=== PATIENT | male | born 1950 | race Caucasian/White ===

== ENCOUNTER 2016-12-29 06:27 | Day surgery (SDC) | payer BC ==
[2016-12-29] MEDS ORDERED: Proparacaine 0.5% Ophth Soln 15 ML Bottle EYELF ONE (06:30)
[2016-12-29] MEDS ORDERED: Cataract Ophth Solution EYELF ONE (06:30)
[2016-12-29] MEDS ORDERED: Phenylephrine 10% Ophth Soln 5 ML Bot EYELF ONE (06:30)
[2016-12-29] MEDS ORDERED: Povidone-Iodine 5% Sterile Ophth Soln 30 ML Bottle EYELF ONE ×3 (06:30→08:59)
[2016-12-29] MEDS ORDERED: Ondansetron 4 MG/2 ML SDV IVPUSH PRN (06:30)
[2016-12-29] MEDS ORDERED: Moxifloxacin 0.5% Ophth Soln 3 ML Bottle EYELF ONE (06:30)
[2016-12-29] MEDS ORDERED: Phenylephrine 10% Ophth Soln 5 ML Bot EYELF PRN (06:30)
[2016-12-29] MEDS ORDERED: Timolol Maleate 0.5% Ophth Soln 5 ML Bottle EYELF ONE (06:30)
[2016-12-29] MEDS ORDERED: Acetaminophen/Codeine 300-30 MG Tab PO PRN (06:30)
[2016-12-29] MEDS ORDERED: Sodium Chloride 0.9% 10 ML Syringe FLUSH PRN (06:30)
[2016-12-29] MEDS ORDERED: Acetaminophen 325 MG Tab PO PRN (06:30)
[2016-12-29] MEDS ORDERED: Dexamethasone 4 MG/ML SDV ONE (07:30)
[2016-12-29] MEDS ORDERED: Midazolam 1 MG/ML 2 ML SDV ONE (07:30)
[2016-12-29] MEDS ORDERED: Lidocaine 1% 30 ML SDV ONE (07:58)
[2016-12-29] MEDS ORDERED: Diclofenac Sodium 0.1% Ophth Soln 5 ML Bottle EYELF ONE (07:58)
[2016-12-29] MEDS ORDERED: Vancomycin 500 MG SDV EYELF ONE (07:59)
[2016-12-29] MEDS ORDERED: Dexamethasone/Neomycin/Polymyxin B Ophth Oint 3.5 GM Tube EYELF ONE (07:59)
[2016-12-29] MEDS ORDERED: Apraclonidine 0.5% Ophth Soln 5 ML Bot EYELF ONE (07:59)
[2016-12-29] MEDS ORDERED: Chondroitin Sulfate/Hyaluronate Sodium Ophth Inj 0.75 ML Syringe EYELF ONE (08:00)
[2016-12-29] MEDS ORDERED: Balanced Salt Solution Ophth Irrig 500 ML Bottle IOCULAR ONE (08:00)
[2016-12-29] MEDS ORDERED: Tetracaine HCl/PF 0.5% 4 ML Bottle EYELF ONE (08:00)
--- NOTE | 2016-12-29 09:32 | OR ---
DATE: 12/29/2016 PREOPERATIVE DIAGNOSIS: Cataract, left eye. POSTOPERATIVE DIAGNOSIS: Cataract, left eye. PROCEDURE: Extracapsular cataract extraction with intraocular lens implant, left eye. ANESTHESIA: Topical/local MAC. COMPLICATIONS: None. INDICATION: Mr. Miller was seen in the clinic with complaints of blurred vision. Examination revealed visually significant cataract. I explained options. I offered cataract surgery, and I explained risks preoperatively including the potential for vision loss. He is symptomatic and requested surgery to improve vision and function. He requested a monofocal implant. He voiced an understanding with respect to risks. OPERATIVE DESCRIPTION: After informed consent was obtained and the risks, benefits, and alternatives were explained, the patient was brought to the operative suite and topical anesthesia was administered. The patient was then prepped and draped in the sterile fashion and attention was placed on the left eye. A sterile lid speculum was placed into the left eye to allow operative exposure. A full-thickness paracentesis was made in the temporal portion of the operative eye. Preservative-free lidocaine 0.1 mL was injected into the anterior chamber followed by viscoelastic. A full-thickness corneal incision was then made into the anterior chamber. A bent needle cystotome was used to create a small anastasia in the anterior capsule. The capsulorrhexis forceps was then used to create a 360-degree curvilinear capsulorrhexis. The nucleus was then removed using a phacoemulsification handpiece and the remaining cortical material was then removed with irrigation and aspiration handpiece. Following removal of the cortical material, the capsular bag was then inspected and noted to be free of any holes or tears. Viscoelastic was then injected into the capsular bag and the intraocular lens was inserted into the capsular bag. No complications occurred. The viscoelastic material was then removed from both the anterior and posterior chambers and from behind the IOL. The lens and capsular bag were then reinspected. The IOL was well centered and the capsular bag intact. The wound and paracentesis sites were inspected and hydrated with balanced saline solution. Both were found to be self-sealing. The intraocular pressure was assessed digitally and found to be within normal range. A good red reflex was noted at the completion of the procedure. No complications occurred during the operation. At the completion of the procedure, Maxitrol, Voltaren, and Iopidine drops were placed into the operative eye. A sterile eye shield was placed over the operative eye and the patient was transported to the postoperative recovery area having tolerated the procedure well. Postoperative instructions were given along with a postoperative appointment. The patient was advised to call with any questions or concerns. MICHAEL /[id number]
[2016-12-29 09:47] VITALS: BP 117/57
[2016-12-29] MEDS ORDERED: Dexamethasone 4 MG/ML SDV IV ONE (13:06)
[2016-12-29] MEDS ORDERED: Midazolam 1 MG/ML 2 ML SDV IV ONE (13:06)
== END 2016-12-29 09:15 | disposition home or self-care (01) ==
LOC: DL.SDS 06:27
PROVIDERS: ATTEND Ophthalmology
DX: H26.9 Unspecified cataract (principal); I10 Essential (primary) hypertension; E78.5 Hyperlipidemia, unspecified; G47.33 Obstructive sleep apnea (adult) (pediatric); E66.9 Obesity, unspecified; I73.9 Peripheral vascular disease, unspecified; Z98.890 Other specified postprocedural states; Z88.1 Allergy status to other antibiotic agents; Z88.8 Allergy status to other drugs, medicaments and biological substances
CPT/HCPCS: 66984; A9270; C1780; J1100; J2250; J3370; J7050

== ENCOUNTER 2017-01-26 06:43 | Day surgery (SDC) | payer BC ==
[~2017-01-26 06:43] MED LIST: Dilation Soln 1 EA EACH EYERT ONE; Moxifloxacin 0.5% Ophth Soln 3 ML Bottle EYERT ONE; Phenylephrine 10% Ophth Soln 5 ML Bot EYERT ONE; Povidone-Iodine 5% Sterile Ophth Soln 30 ML Bottle EYERT ONE; Proparacaine 0.5% Ophth Soln 15 ML Bottle EYERT ONE; Sodium Chloride 0.9% 10 ML Syringe FLUSH PRN; Timolol Maleate 0.5% Ophth Soln 5 ML Bottle EYERT ONE
[2017-01-26] MEDS ORDERED: Midazolam 1 MG/ML 2 ML SDV ONE (07:37)
[2017-01-26] MEDS ORDERED: fentaNYL 100 MCG/2 ML SDV ONE (07:37)
[2017-01-26] MEDS ORDERED: Dexamethasone 4 MG/ML SDV ONE (07:37)
[2017-01-26] MEDS ORDERED: Lidocaine 1% 30 ML SDV ONE (08:10)
[2017-01-26] MEDS ORDERED: Apraclonidine 0.5% Ophth Soln 5 ML Bot EYERT ONE (08:11)
[2017-01-26] MEDS ORDERED: Povidone-Iodine 5% Sterile Ophth Soln 30 ML Bottle EYERT ONE (08:11)
[2017-01-26] MEDS ORDERED: Tetracaine HCl/PF 0.5% 4 ML Bottle EYERT ONE (08:12)
[2017-01-26] MEDS ORDERED: Diclofenac Sodium 0.1% Ophth Soln 5 ML Bottle EYERT ONE (08:12)
[2017-01-26] MEDS ORDERED: Balanced Salt Solution Ophth Irrig 500 ML Bottle IOCULAR ONE (08:12)
[2017-01-26] MEDS ORDERED: Chondroitin Sulfate/Hyaluronate Sodium Ophth Inj 0.75 ML Syringe EYERT ONE (08:12)
[2017-01-26] MEDS ORDERED: Dexamethasone/Neomycin/Polymyxin B Ophth Oint 3.5 GM Tube EYERT ONE (08:12)
[2017-01-26] MEDS ORDERED: Vancomycin 500 MG SDV EYERT ONE (08:13)
--- NOTE | 2017-01-26 08:48 | OR ---
DATE: 01/26/2017 PREOPERATIVE DIAGNOSIS: Cataract, right eye. POSTOPERATIVE DIAGNOSIS: Cataract, right eye. PROCEDURE: Extracapsular cataract extraction with intraocular lens implant, right eye. ANESTHESIA: Topical/local MAC. COMPLICATIONS: None. INDICATION: Mr. Miller was seen in the clinic. He has complained of a slow change in vision. His clinical examination reveals visually significant cataract. He is symptomatic and requested cataract surgery. I explained the risks preoperatively including, but not limited to, infection, retinal detachment, loss of vision, need for additional surgery, and risks associated with anesthesia. We discussed implant options. He requested a monofocal implant. OPERATIVE DESCRIPTION: After informed consent was obtained and the risks, benefits, and alternatives were explained, the patient was brought to the operative suite and topical anesthesia was administered. The patient was then prepped and draped in the sterile fashion and attention was placed on the right eye. A sterile lid speculum was placed into the right eye to allow operative exposure. A full-thickness paracentesis was made in the temporal portion of the operative eye. Preservative-free lidocaine 0.1 mL was injected into the anterior chamber followed by viscoelastic. A full-thickness corneal incision was then made into the anterior chamber. A bent needle cystotome was used to create a small anastasia in the anterior capsule. The capsulorrhexis forceps was then used to create a 360-degree curvilinear capsulorrhexis. The nucleus was then removed using a phacoemulsification handpiece and the remaining cortical material was then removed with irrigation and aspiration handpiece. Following removal of the cortical material, the capsular bag was then inspected and noted to be free of any holes or tears. Viscoelastic was then injected into the capsular bag and the intraocular lens was inserted into the capsular bag. No complications occurred. The viscoelastic material was then removed from both the anterior and posterior chambers and from behind the IOL. The lens and capsular bag were then reinspected. The IOL was well centered and the capsular bag intact. The wound and paracentesis sites were inspected and hydrated with balanced saline solution. Both were found to be self-sealing. The intraocular pressure was assessed digitally and found to be within normal range. A good red reflex was noted at the completion of the procedure. No complications occurred during the operation. At the completion of the procedure, Maxitrol, Voltaren, and Iopidine drops were placed into the operative eye. A sterile eye shield was placed over the operative eye and the patient was transported to the postoperative recovery area having tolerated the procedure well. Postoperative instructions were given along with a postoperative appointment. The patient was advised to call with any questions or concerns. [facility] /[id number]
[2017-01-26 09:01] VITALS: BP 116/74
[2017-01-26] MEDS ORDERED: Midazolam 1 MG/ML 2 ML SDV IV ONE (15:24)
[2017-01-26] MEDS ORDERED: Dexamethasone 4 MG/ML SDV IV ONE (15:24)
== END 2017-01-26 09:18 | disposition home or self-care (01) ==
LOC: DL.SDS 06:43
PROVIDERS: ATTEND Ophthalmology
DX: H26.9 Unspecified cataract (principal); I10 Essential (primary) hypertension; E66.9 Obesity, unspecified; G47.33 Obstructive sleep apnea (adult) (pediatric); I73.9 Peripheral vascular disease, unspecified; E78.5 Hyperlipidemia, unspecified; E79.0 Hyperuricemia without signs of inflammatory arthritis and tophaceous disease; Z88.1 Allergy status to other antibiotic agents; Z88.8 Allergy status to other drugs, medicaments and biological substances; Z98.890 Other specified postprocedural states
CPT/HCPCS: 66984; A9270; C1780; J1100; J2250; J3370; J7050

== ENCOUNTER 2021-09-13 20:18 | Emergency (ER) | payer MEDICARE, OTHER ==
[2021-09-13] MEDS ORDERED: methylPREDNISolone Sodium Succinate 125 MG/2 ML SDV ONE (21:41)
[2021-09-13] MEDS ORDERED: Bupivacaine 0.5% 30 ML SDV IARTIC ONE (21:42)
[2021-09-13] MEDS ORDERED: Bupivacaine 0.5% 30 ML SDV ONE (21:42)
[2021-09-13] MEDS ORDERED: fentaNYL 100 MCG/2 ML SDV IVPUSH ONE ×2 (21:43→22:52)
[2021-09-13 22:59] VITALS: BP 154/74; PULSE 86
== END 2021-09-13 22:58 | disposition home or self-care (01) ==
LOC: DL.ED 20:18
DX: S89.92XA Unspecified injury of left lower leg, initial encounter (principal); E78.00 Pure hypercholesterolemia, unspecified; I10 Essential (primary) hypertension; Z86.73 Personal history of transient ischemic attack (TIA), and cerebral infarction without residual deficits; Z88.0 Allergy status to penicillin; Z88.8 Allergy status to other drugs, medicaments and biological substances; W19.XXXA Unspecified fall, initial encounter
CPT/HCPCS: 20610; 73562-LT; 73562-RT; 96374; 96376; 99284; 99284-25; J2930; J3010; J3490